=== PATIENT | male | born 1985 | race Caucasian/White ===

== ENCOUNTER 2017-06-21 09:07 | Inpatient (IN) | payer OTHER ==
--- NOTE | 2017-06-21 09:41 | HP ---
COWS - Scale Resting Pulse: 0= [place] 80 or Below Sweatin= Chills/Flushing Restless Observation: 1= Difficult to Sit Still Pupil Size: 0= Normal to Room Light Bone or Joint Aches: 1= Mild Discomfort Runny Nose/ Eye Tearin= Nasal Congestion GI Upset > 30mins: 1= Stomach Cramp Tremor Observation: 1= Tremor [place], Not Seen Yawning Observation: 1= 1-2x During Session Anxiety or Irritability: 2=Irritable/Anxious Goose Flesh Skin: 0=Smooth Skin COWS Score: 9 Admission ROS BHS - HPI Chief Complaint: I'm tired, I want to stop using Allergies/Adverse Reactions: Allergies Allergy/AdvReac Type Severity Reaction Status Date / Time No Known Allergies Allergy Verified 06/21/17 09:37 History of Present Illness: 32 yo gentleman here for detox from opiates - history of previous detox and rehab. Denies seizures. Exam Limitations: Clinical Condition - Ebola screening Have you traveled outside of the country in the last 21 days: No Have you had contact with anyone from an Ebola affected area: No Do you have a fever: No - Review of Systems Constitutional: Chills, Loss of Appetite, Malaise, Changes in sleep, Weakness EENT: reports: Nose Congestion Respiratory: reports: No Symptoms reported Cardiac: reports: No Symptoms Reported GI: reports: Nausea, Poor Appetite, Indigestion : reports: No Symptoms Reported Musculoskeletal: reports: Back Pain, Muscle Pain Integumentary: reports: No Symptoms Reported Neuro: reports: Headache Endocrine: reports: No Symptoms Reported Hematology: reports: No Symptoms Reported Psychiatric: reports: Judgement Intact, Mood/Affect Appropiate, Orientated x3, Anxious Other Systems: Reviewed and Negative Patient History - Patient Medical History Hx Anemia: No Hx Asthma: No Hx Chronic Obstructive Pulmonary Disease (COPD): No Hx Cancer: No Hx Cardiac Disorders: No Hx Congestive Heart Failure: No Hx Hypertension: No Hx Hypercholesterolemia: No Hx Pacemaker: No HX Cerebrovascular Accident: No Hx Seizures: No Hx Dementia: No Hx Diabetes: No Hx Gastrointestinal Disorders: No Hx Sexually Transmitted Disorders: No Hx Renal Disease (ESRD): No Hx Thyroid Disease: No Hx Human Immunodeficiency Virus (HIV): No (LAST 01/08) Hx Hepatitis C: No Hx Depression: Yes (ANXIETY,INSOMNIA) Hx Suicide Attempt: No Hx Bipolar Disorder: No Hx Schizophrenia: No - Patient Surgical History Past Surgical History: No - PPD History Previous Implant?: Yes Documented Results: Negative w/o proof Date: 08/05/15 PPD to be Administered?: Yes - Reproductive History Patient is a Female of Child Bearing Age (11 -55 yrs old): No (male) - Smoking Cessation Smoking history: Current every day smoker Aproximately how many cigarettes per day: 20 Cigars Per Day: 0 Hx Chewing Tobacco Use: No Initiated information on smoking cessation: Yes 'Breaking Loose' booklet given: 06/21/17 (give on floor) - Substance & Tx. History Hx Alcohol Use: No Hx Substance Use: Yes Substance Use Type: Heroin Hx Substance Use Treatment: Yes (detox, hx suboxone, rehab) - Substances Abused Heroin Route: Injection Frequency: Daily Amount used: 20 bags Age of first use: 19 Date of Last Use: 06/20/17 Family Disease History - Family Disease History Family Disease History: [place]: Father (, ), Other: Father, Mother (alive, healthy), Brother (one alive healthy) Admission Physical Exam S - Vital Signs Vital Signs: Vital Signs Period Temp Pulse Resp BP Sys/Ford Pulse Ox Last 24 Hr 96.4 F 77 18 119/71 - Physical General Appearance: Yes: Nourished, Appropriately Dressed, Moderate Distress, Anxious HEENTM: Yes: Hearing grossly Normal, Normocephalic, Normal Voice, Pharynx Normal Respiratory: Yes: No Respiratory Distress, Rhonchi Neck: Yes: No masses,lesions,Nodules, Supple Breast: Yes: Breast Exam Deferred Cardiology: Yes: Regular Rhythm, Regular Rate Abdominal: Yes: Flat, Soft Genitourinary: Yes: Within Normal Limits Back: Yes: Normal Inspection Musculoskeletal: Yes: full range of Motion, Gait Steady Extremities: Yes: Normal Inspection Neurological: Yes: Fully Oriented, Alert, Normal Mood/Affect, Normal Response Integumentary: Yes: Normal Color, Warm, Track [place] (both arms, antecubital space, no abscess noted) Lymphatic: Yes: Within Normal Limits - Diagnostic (1) Heroin dependence Current Visit: Yes Status: Chronic (2) Nicotine dependence Current Visit: Yes Status: Chronic Qualifiers: Nicotine product type: cigarettes Substance use status: uncomplicated Qualified Code(s): F17.210 - Nicotine dependence, cigarettes, uncomplicated Cleared for Admission BHS - Detox or Rehab [facility] Level of Care: Medically Managed Detox Regimen/Protocol: Methadone [facility] Breath Alcohol Content Breath Alcohol Content: 0
[2017-06-21] MEDS ORDERED: MENTHOL/PHENOL 1 EACH UD MM PRN (09:43)
[2017-06-21] MEDS ORDERED: NICOTINE POLACRILEX 4 MG GUM BUC PRN (09:43)
[2017-06-21] MEDS ORDERED: P-EPHED 60MG/TRIPROLIDI 2.5MG TABLET PO PRN (09:43)
[2017-06-21] MEDS ORDERED: MAGNESIUM CITRATE 300 ML BOTTLE PO PRN (09:43)
[2017-06-21] MEDS ORDERED: hydrOXYzine PAMOATE 50 MG CAPSULE (FP) PO PRN (09:43)
[2017-06-21] MEDS ORDERED: MAGNESIUM HYDROX 2400MG/30ML ORAL SUSPENSION 30 ML CUP PO PRN (09:43)
[2017-06-21] MEDS ORDERED: MAG HYDROX/AL HYDROX/SIMETH 30 ML UNIT-DOSE CUP PO PRN (09:43)
[2017-06-21] MEDS ORDERED: ACETAMINOPHEN 325 MG TABLET (FP) PO PRN (09:43)
[2017-06-21] MEDS ORDERED: LOPERAMIDE HCL 2 MG CAPSULE PO PRN (09:43)
[2017-06-21] MEDS ORDERED: guaiFENesin/D-METHORPHAN HB 10 ML UNIT-DOSE CUPS PO PRN (09:43)
[2017-06-21] MEDS ORDERED: IBUPROFEN 400 MG TABLET (FP) PO PRN (09:43)
[2017-06-21 09:48] VITALS: BMI 22.9
[2017-06-21] MEDS ORDERED: METHADONE HCL 10 MG TABLET (FOR DETOX USE ONLY) PO ONE ×2 (11:00→23:00)
[2017-06-21] MEDS: PRENATAL VITAMINS W/ FOLIC ACID TABLET (FP) PO SCH (12:11)
[2017-06-21] MEDS: diazePAM 5 MG TABLET PO PRN ×2 (12:11→22:13)
[2017-06-21 17:17] LABS: URINE APPEARANCE CLEAR; URINE BILIRUBIN NEGATIVE (NEGATIVE); URINE BLOOD NEGATIVE (NEGATIVE); URINE COLOR YELLOW; URINE GLUCOSE (UA) NEGATIVE (NEGATIVE); URINE KETONE NEGATIVE (NEGATIVE); URINE LEUK ESTERASE NEGATIVE (NEGATIVE); URINE NITRITE NEGATIVE (NEGATIVE); URINE PROTEIN NEGATIVE (NEGATIVE); URINE UROBILINOGEN NEGATIVE mg/dL (0.2-1.0)
[2017-06-21] MEDS ORDERED: diphenhydrAMINE HCL 50 MG CAPSULE PO PRN (22:00)
[2017-06-21] MEDS ORDERED: THIAMINE HCL 100 MG TABLET (FP) PO SCH (22:00)
[2017-06-22] MEDS: diazePAM 5 MG TABLET PO PRN ×2 (07:18→11:16)
[2017-06-22] MEDS ORDERED: METHADONE HCL 10 MG TABLET (FOR DETOX USE ONLY) PO ONE (10:00)
[2017-06-22 10:30] LABS: ANION GAP 5 (8-16); CALCIUM 9.4 mg/dL (8.5-10.1); CO2 31 mmol/L (21-32); GLUCOSE,RANDOM 103 mg/dL (74-106)
[2017-06-22 10:31] LABS: MCH 28.8 pg (25.7-33.7); MCHC 33.6 g/dl (32.0-35.9); MEAN CELL VOLUME 85.6 fl (80-96); MEAN PLT VOLUME 9.5 fl (7.5-11.1); PLATELET COUNT 262 K/MM3 (134-434); RDW 13.4 % (11.9-15.9); WHITE BLOOD COUNT 9.1 K/mm3 (4.0-10.0)
[2017-06-22 10:35] LABS: ALK PHOS 99 U/L (45-117); BILIRUBIN,TOTAL 0.5 mg/dL (0.2-1.0); CREATININE 0.9 mg/dL (0.7-1.3); SGOT/AST 16 U/L (15-37); SGPT/ALT 18 U/L (12-78); TOT PROT 7.6 g/dl (6.4-8.2)
[2017-06-22] MEDS: PRENATAL VITAMINS W/ FOLIC ACID TABLET (FP) PO SCH (11:13)
--- NOTE | 2017-06-22 11:49 | PN ---
BHS COWS - Scale Resting Pulse: 1= [place] 81-100 Sweatin=Flushed/Facial Moisture Restless Observation: 1= Difficult to Sit Still Pupil Size: 0= Normal to Room Light Bone or Joint Aches: 1= Mild Discomfort Runny Nose/ Eye Tearin= Nasal Congestion GI Upset > 30mins: 2= Nausea/Diarrhea Tremor Observation of Outstretched Hands: 2= Slight Tremor Visible Yawning Observation: 1= 1-2x During Session Anxiety or Irritability: 2=Irritable/Anxious Goose Flesh Skin: 0=Smooth Skin COWS Score: 13 BHS Progress Note (SOAP) Subjective: Anxiety,tremors,sweating,interrupted sleep,restless. Objective: 06/22/17 11:48 Vital Signs - 8 hr 06/22/17 06/22/17 06:00 10:00 Temperature 97.7 F 97.6 F Pulse Rate 81 84 Respiratory 18 18 Rate Blood Pressure 150/78 140/62 Laboratory Last Values WBC 9.1 K/mm3 (4.0-10.0) 06/22/17 06:00 RBC 4.53 M/mm3 (4.00-5.60) 06/22/17 06:00 Hgb 13.0 GM/dL (11.7-16.9) 06/22/17 06:00 Hct 38.8 % (35.4-49) 06/22/17 06:00 MCV 85.6 fl (80-96) 06/22/17 06:00 MCH 28.8 pg (25.7-33.7) 06/22/17 06:00 MCHC 33.6 g/dl (32.0-35.9) 06/22/17 06:00 RDW 13.4 % (11.9-15.9) 06/22/17 06:00 Plt Count 262 K/MM3 (134-434) 06/22/17 06:00 MPV 9.5 fl (7.5-11.1) 06/22/17 06:00 Sodium 139 mmol/L (136-145) 06/22/17 06:00 Potassium 4.1 mmol/L (3.5-5.1) 06/22/17 06:00 Chloride 103 mmol/L (98-107) 06/22/17 06:00 Carbon Dioxide 31 mmol/L (21-32) D 06/22/17 06:00 Anion Gap 5 (8-16) L 06/22/17 06:00 BUN 18 mg/dL (7-18) D 06/22/17 06:00 Creatinine 0.9 mg/dL (0.7-1.3) D 06/22/17 06:00 Creat Clearance w eGFR > 60 (>60) 06/22/17 06:00 Random Glucose 103 mg/dL (74-106) 06/22/17 06:00 Calcium 9.4 mg/dL (8.5-10.1) 06/22/17 06:00 Total Bilirubin 0.5 mg/dL (0.2-1.0) 06/22/17 06:00 AST 16 U/L (15-37) D 06/22/17 06:00 ALT 18 U/L (12-78) 06/22/17 06:00 Alkaline Phosphatase 99 U/L (45-117) 06/22/17 06:00 Total Protein 7.6 g/dl (6.4-8.2) 06/22/17 06:00 Albumin 4.0 g/dl (3.4-5.0) 06/22/17 06:00 Urine Color Yellow 06/21/17 16:30 Urine Appearance Clear 06/21/17 16:30 Urine pH 5.0 (5.0-8.0) 06/21/17 16:30 Ur Specific [place] 1.020 (1.005-1.025) 06/21/17 16:30 Urine Protein Negative (NEGATIVE) 06/21/17 16:30 Urine Glucose (UA) Negative (NEGATIVE) 06/21/17 16:30 Urine Ketones Negative (NEGATIVE) 06/21/17 16:30 Urine Blood Negative (NEGATIVE) 06/21/17 16:30 Urine Nitrite Negative (NEGATIVE) 06/21/17 16:30 Urine Bilirubin Negative (NEGATIVE) 06/21/17 16:30 Urine Urobilinogen Negative mg/dL (0.2-1.0) 06/21/17 16:30 Ur Leukocyte Esterase Negative (NEGATIVE) 06/21/17 16:30 labs noted Assessment: 06/22/17 11:48 Withdrawal sx. Plan: Continue detox
[2017-06-22 14:02] VITALS: BP 135/74; PULSE 89; TEMP 96.4
--- NOTE | 2017-06-22 17:17 | DS ---
[facility] Detox Discharge Summary Admission Date: 06/21/17 Discharge Date: 06/22/17 - History Present History: Opioid Dependence Pertinent Past History: Insomnia Anxiety - Physical Exam Results Vital Signs: Vital Signs Temperature 96.4 F L 06/22/17 14:01 Pulse Rate 89 06/22/17 14:01 Respiratory Rate 20 06/22/17 14:01 Blood Pressure 135/74 06/22/17 14:01 O2 Sat by Pulse Oximetry (%) Pertinent Admission Physical Exam Findings: Withdrawal sx. Laboratory Results - last 24 hr 06/21/17 06/22/17 06/22/17 16:30 06:00 06:00 WBC 9.1 RBC 4.53 Hgb 13.0 Hct 38.8 MCV 85.6 MCH 28.8 MCHC 33.6 RDW 13.4 Plt Count 262 MPV 9.5 Sodium 139 Potassium 4.1 Chloride 103 Carbon Dioxide 31 D Anion Gap 5 L BUN 18 D Creatinine 0.9 D Creat Clearance w eGFR > 60 Random Glucose 103 Calcium 9.4 Total Bilirubin 0.5 AST 16 D ALT 18 Alkaline Phosphatase 99 Total Protein 7.6 Albumin 4.0 Urine Color Yellow Urine Appearance Clear Urine pH 5.0 Ur Specific [place] 1.020 Urine Protein Negative Urine Glucose (UA) Negative Urine Ketones Negative Urine Blood Negative Urine Nitrite Negative Urine Bilirubin Negative Urine Urobilinogen Negative Ur Leukocyte Esterase Negative RPR Titer 06/22/17 06:00 WBC RBC Hgb Hct MCV MCH MCHC RDW Plt Count MPV Sodium Potassium Chloride Carbon Dioxide Anion Gap BUN Creatinine Creat Clearance w eGFR Random Glucose Calcium Total Bilirubin AST ALT Alkaline Phosphatase Total Protein Albumin Urine Color Urine Appearance Urine pH Ur Specific [place] Urine Protein Urine Glucose (UA) Urine Ketones Urine Blood Urine Nitrite Urine Bilirubin Urine Urobilinogen Ur Leukocyte Esterase RPR Titer Nonreactive labs noted - Treatment Patient has Accepted a Rehab Referral to: [facility] - Medication Discharge Medications: Ambulatory Orders NK [No Known Home Medication] 08/03/15 - AMA Did Patient Leave Against Medical Advice: Yes (Medically stable)
--- NOTE | 2017-06-23 09:59 | EKG ---
Test Reason : Blood Pressure : / mmHG Vent. Rate : 067 BPM Atrial Rate : 067 BPM P-R Int : 132 ms QRS Dur : 088 ms QT Int : 394 ms P-R-T Axes : 065 056 021 degrees QTc Int : 416 ms NORMAL SINUS RHYTHM NORMAL ECG NO PREVIOUS ECGS AVAILABLE Confirmed by GIDEON SINGLETARY MD ([id number]) on 06/23/2017 9:58:53 AM Referred By: Confirmed By:GIDEON SINGLETARY MD
[2017-06-23] MEDS ORDERED: METHADONE HCL 5 MG TABLET (FOR DETOX USE ONLY) PO ONE (10:00)
[2017-06-24] MEDS ORDERED: METHADONE HCL 5 MG TABLET (FOR DETOX USE ONLY) PO ONE (10:00)
[2017-06-25] MEDS ORDERED: METHADONE HCL 10 MG TABLET (FOR DETOX USE ONLY) PO ONE (10:00)
[2017-06-26] MEDS ORDERED: METHADONE HCL 5 MG TABLET (FOR DETOX USE ONLY) PO ONE (06:00)
== END 2017-06-22 17:05 | disposition left against medical advice (07) | DRG 770 ==
LOC: YASAS 09:07 → Y6N 10:53
PROVIDERS: ADMIT Internal Medicine; ATTEND Internal Medicine
PROC: HZ2ZZZZ Detoxification Services for Substance Abuse Treatment (ICD-10-PCS; principal; 2017-06-22)
DX: F11.20 Opioid dependence, uncomplicated (principal); F17.210 Nicotine dependence, cigarettes, uncomplicated; F41.9 Anxiety disorder, unspecified; G47.00 Insomnia, unspecified
CPT/HCPCS: 36415; 80053; 81003; 85027; 86593; 93005; 93010